=== PATIENT | female | born 1990 | race Two or more races ===

== ENCOUNTER → 2017-06-20 | Day surgery (SDC) | payer OTHER ==
[~2017-06-20] MED LIST: BUPIVACAINE HCL 0.5% 10ML MPF VIAL INJ ONE; CEFAZOLIN SOD 2 GM/D5W 50ML 50 ML IV ONE; DEXAMETHASONE SOD PHOS INJ 4 MG/ML VIAL ONE; FENTANYL CITRATE/PF 100MCG/2 ML INJ ONE; KETOROLAC TROMETHAMINE 30 MG/ML VIAL ONE; LIDOCAINE HCL 2% LOCAL INJ 5 ML SDV VIAL INJ ONE; MIDAZOLAM HCL 2 MG/2 ML VIAL ONE; NEOMYCIN/POLYMYX/BACITR OINT 0.9 GM PKT ONE; ONDANSETRON HCL INJ 2 MG/ML VIAL ONE; PROPOFOL IV EMULSION 10 MG/ML 20 ML VIAL ONE; SEVOFLURANE INHAL SOLN 250 ML PEN BTL ONE
--- NOTE | 2017-07-07 18:01 | Operative Report ---
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 TITLE OF OPERATION: Modified Toñito bunionectomy, right foot. ANESTHESIA: General endotracheal. HEMOSTASIS: Right thigh tourniquet at 350 mmHg. PROCEDURE IN DETAIL: The patient was taken to the operating room in a mildly sedated state, and placed upon the operating table in the supine position. Following induction of general anesthetic, the right lower extremity was elevated to 60 degrees to exsanguinate before inflating the pneumatic thigh tourniquet at 350 mmHg for hemostasis. The right lower extremity was placed on the operating table prior to performing the following procedure: PROCEDURE #1: Modified Toñito bunionectomy of the right foot. An approximately 6 cm dorsal linear incision was made across the dorsomedial aspect of the 1st metatarsophalangeal joint of the right foot. The incision was deepened via sharp and blunt dissection at the level of the dorsal capsular structure. Care was taken to identify and retract all vital structures encountered. The head of the 1st metatarsal below the surgical site was remodeled utilizing an oscillating saw. The conjoined tendon of the adductor hallucis muscle was identified and tenotomized. [id number] the osteotomy was placed with apex distally and base proximally to allow for relative shift lateralward of the head on the more proximal segment, which was then impacted and stabilized with 2 cortical bone screws. The medial eminence was further remodeled with an oscillating saw and rotary bur. A further remodeling was performed. The area was irrigated with copious amounts of sterile saline solution. Deep closure was 3-0 Vicryl. Subcutaneous closure 4-0 Vicryl and skin closure with 4-0 nylon. The areas of surgery were then blocked with 0.5 Marcaine and Decadron [place]. Human tissue allograft was used to facilitate healing. Release of the pneumatic thigh tourniquet showed a normal hyperemic flush to all digits of the right foot. The patient left the operating room with vital signs stable and in apparent satisfactory condition, having tolerated both the anesthetic and procedure very well. Job#: [id number]
== END | disposition home or self-care (01) ==
LOC: OR 05:30
PROVIDERS: ATTEND Podiatrist Foot Surgery
DX: M20.11 Hallux valgus (acquired), right foot (principal)
CPT/HCPCS: 28296; 81025; J1100; J1885; J2001; J2250; J2405; 76000

== ENCOUNTER → 2017-11-28 | Day surgery (SDC) | payer OTHER ==
[2017-11-27 12:27] LABS: BASOPHILS % 0.9 % (0.0-1.0); EOSINOPHILS # (AUTO) 0.2 (0.0-0.4); EOSINOPHILS % 4.5 % (0.0-6.0); HEMATOCRIT 37.2 % (34.2-44.1); HEMOGLOBIN 12.5 g/dL (12.0-16.0); LYMPHOCYTES # (AUTO) 1.8 (1.0-3.2); LYMPHOCYTES % 53.6 % (18.0-39.1); MEAN CORPUSCULAR HEMOGLOBIN 31.1 pg (28-32); MEAN CORPUSCULAR HGB CONC 33.6 g/dL (31-35); MEAN CORPUSCULAR VOLUME 92.5 fL (81-99); MONOCYTES # (AUTO) 0.3 (0.2-0.8); MONOCYTES % 8.2 % (4.4-11.3); NEUTROPHILS # (AUTO) 1.1 (2.1-6.9); NEUTROPHILS % 32.8 % (38.7-80.0); PLATELET COUNT 210 x10e3/uL (140-360); RED BLOOD COUNT 4.02 x10e6/uL (3.6-5.1); RED CELL DISTRIBUTION WIDTH 13.6 % (11.7-14.4)
[~2017-11-28] MED LIST changes: -BUPIVACAINE HCL 0.5% 10ML MPF VIAL INJ ONE; +BUPIVACAINE HCL 0.5% INJ 30 ML VIAL INJ ONE; -NEOMYCIN/POLYMYX/BACITR OINT 0.9 GM PKT ONE; +NEOSTIGMINE 1 MG/ML 10ML VIAL ONE
--- NOTE | 2017-11-29 00:18 | Operative Report ---
DATE OF PROCEDURE: November 28, 2017 ROOM NUMBER: [facility] PREOPERATIVE DIAGNOSIS: Painful hardware, 1st metatarsophalangeal joint, right foot. POSTOPERATIVE DIAGNOSIS: Painful hardware, 1st metatarsophalangeal joint, right foot. TITLE OF OPERATION: Screw removal 1st metatarsophalangeal joint, right foot. ANESTHESIA: General endotracheal. HEMOSTASIS: Right ankle tourniquet at 350 mmHg. PROCEDURE IN DETAIL: The patient was taken to the operating room in a mildly sedated state and placed upon the operating table in supine position. Following induction of general anesthetic, the right lower extremity was elevated to 60 degrees to exsanguinate before inflating the pneumatic thigh tourniquet to 350 mmHg hemostasis. Right lower extremity was placed on the operating table prior to performing the following procedure. Procedure #1 is the screw removal of the 1st metatarsophalangeal joint of the right foot. A fluoroscopy unit was used and the cannulated screw was identified via fluoroscopy and K-wire. The K-wire was inserted into the cannula and a stab incision made surrounding the screw, which was then backed out utilizing standard technique, irrigated. Deep closure and skin closure was 4-0 nylon. The area was blocked with 0.5 Marcaine, Decadron LA. Release of the pneumatic ankle tourniquet showed a normal hyperemic flush to all digits of the right foot and patient left the operating room with vital signs stable in apparent satisfactory condition, having tolerated both anesthetic and procedure very well. Job#: [id number]
== END | disposition home or self-care (01) ==
LOC: OR 05:16
PROVIDERS: ATTEND Podiatrist Foot Surgery
DX: T84.84XA Pain due to internal orthopedic prosthetic devices, implants and grafts, initial encounter (principal); M79.671 Pain in right foot; Y83.8 Other surgical procedures as the cause of abnormal reaction of the patient, or of later complication, without mention of misadventure at the time of the procedure; Z01.812 Encounter for preprocedural laboratory examination
CPT/HCPCS: 20680; 36415; 81025; 85025; J1100; J1885; J2001; J2250; J2405; J2710; 76000